=== PATIENT | male | born 1975 | race American Indian/Alaskan Native ===

== ENCOUNTER 2019-10-24 23:11 | Emergency (ER) | payer OTHER ==
[2019-10-24] MEDS ORDERED: Nitroglycerin 0.4 MG Tab.SL SL PRN (23:21)
[2019-10-24] MEDS ORDERED: Sodium Chloride 0.9% 2.5 ML Syringe FLUSH PRN (23:21)
[2019-10-24] MEDS ORDERED: Sodium Chloride 0.9% 10 ML Syringe FLUSH PRN (23:21)
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
[2019-10-24] MEDS ORDERED: HYDROmorphone 2 MG/ML Syringe IVPUSH ONE (23:33)
[2019-10-24] MEDS ORDERED: Ondansetron 4 MG/2 ML SDV IVPUSH ONE (23:33)
[2019-10-24 23:48] LABS: BLOOD UREA NITROGEN,BUN 11 mg/dL (7.0-18.0); CARBON DIOXIDE,CO2 22.3 mmol/L (21.0-32.0); CHLORIDE,CL 107 mmol/L (98-107); GLUCOSE RANDOM 126 mg/dL (74-106); POTASSIUM,K 3.7 mmol/L (3.5-5.1); SODIUM,NA 141 mmol/L (136-148)
[2019-10-25] MEDS ORDERED: HYDROmorphone 1 MG/ML Syringe IVPUSH ONE (01:10)
--- NOTE | 2019-10-25 01:19 | CT ---
INDICATION: Right flank pain TECHNIQUE: CT Abdomen and pelvis without i.v. contrast. Coronal and sagittal reformats were obtained. COMPARISON: None FINDINGS: Lower chest: Unremarkable. Pacer wires are partially visualized within the right atrium and ventricle. Liver: Unremarkable. Spleen: Unremarkable. Pancreas: Unremarkable. Gallbladder: Mild nonspecific gallbladder distention is present 4.3 cm. Kidney: There is a 1 mm stone present in the right ureterovesicular junction causing mild hydroureter and mild renal pelvicaliectasis. The left kidney is unremarkable in appearance. There is a punctate density in the left pelvis on image 128 which may represent a tiny nonobstructing distal left ureteral stone. Adrenal: Unremarkable. Bowel: Unremarkable. The appendix is normal in appearance and size. The appendix is best seen on coronal image 47. Vascular: Unremarkable. Lymph: Unremarkable. Peritoneum: Unremarkable. No pneumoperitoneum is seen. No significant ascites is noted. Pelvis: Unremarkable. Soft tissue: Unremarkable. Bone: Unremarkable for age. IMPRESSIONS: 1. There is a 1 mm stone present in the right ureterovesicular junction causing mild hydroureter and mild renal pelvicaliectasis. 2. There is a punctate density in the left pelvis on image 128 which may represent a tiny nonobstructing distal left ureteral stone. Dictated by Mario Roa MD @ 10/25/2019 1:16:57 AM Please note that all CT scans at this facility use dose modulation, iterative reconstruction, and/or weight-based dosing when appropriate to reduce radiation dose to as low as reasonably achievable. Dictated by: Mario Roa MD @ 10/25/2019 01:17:07 (Electronically Signed)
[2019-10-25 04:27] VITALS: BP 114/69; PULSE 56
== END 2019-10-25 02:35 | disposition home or self-care (01) ==
LOC: MW.ED 23:11
DX: N20.1 Calculus of ureter (principal); I50.9 Heart failure, unspecified; E11.9 Type 2 diabetes mellitus without complications; Z79.01 Long term (current) use of anticoagulants; Z79.899 Other long term (current) drug therapy; Z86.711 Personal history of pulmonary embolism
CPT/HCPCS: 36415; 74176; 80053; 81001; 84484; 85025; 85610; 93005; 96374; 96375; 96376; 99284; J1170; J2405

== ENCOUNTER 2020-11-28 18:11 | Emergency (ER) | payer MEDICAID, OTHER ==
[~2020-11-28 18:11] MED LIST: Lidocaine 1% 50 ML MDV INJECT ONE
[2020-11-28] MEDS ORDERED: Lidocaine 1% 10 ML MDV INJECT ONE (18:20)
[2020-11-28] MEDS ORDERED: Diphtheria,Pertussis(Acell),Tetanus Vaccine 0.5 ML Syringe IM ONE (18:35)
[2020-11-28] MEDS ORDERED: Piperacillin/Tazobactam 3.375 GM in Sodium Chloride 0.9% 50 ML IV ONE (18:37)
[2020-11-28] MEDS ORDERED: Phytonadione 10 MG in Sodium Chloride 0.9% 50 ML IV ONE (18:38)
[2020-11-28] MEDS ORDERED: Sodium Chloride 0.9% 1,000 ML IV ONE ×2 (18:43→18:46)
[2020-11-28] MEDS ORDERED: Tranexamic Acid 1,000 MG in Sodium Chloride 0.9% 100 ML IV ONE (18:44)
[2020-11-28 19:10] LABS: BLOOD UREA NITROGEN,BUN 8 mg/dL (7.0-18.0); CARBON DIOXIDE,CO2 26.1 mmol/L (21.0-32.0); CHLORIDE,CL 103 mmol/L (98-107); GLUCOSE RANDOM 243 mg/dL (74-106); POTASSIUM,K 3.7 mmol/L (3.5-5.1); SODIUM,NA 140 mmol/L (136-148)
[2020-11-28] MEDS ORDERED: Rocuronium 50 MG/5 ML Vial IVPUSH ONE (19:18)
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
[2020-11-28] MEDS ORDERED: fentaNYL 50 MCG/ML SDV IVPUSH ONE (19:19)
[2020-11-28] MEDS ORDERED: Propofol 200 MG/20 ML SDV IVPUSH ONE (19:22)
[2020-11-28] MEDS ORDERED: fentaNYL/Normal Saline 2,500 MCG in Premix Bag 1 BAG IV SCH (19:30)
--- NOTE | 2020-11-28 19:50 | PCM.PR.ETI ---
Endotracheal Intubation - Endotracheal Intubation Time of Intubation: 19:05 ET Intubation Indication: Airway Protection Preparation: Suction, Balloon Tested, BVM Set Up Pre-Oxygenation: Assisted with BVM, 100% FiO2 Anesthesia Meds: Propofol (150 mg), Rocuronium (50 mg) Placement: Orotracheal, Cuffed, Uncomplicated Placement Cords Visualized: Yes, Grade 1 ETT Size In mm: 7.5 Number of Attempts: 1 Confirmed By: CO2 Indicator, Bilateral Breath Sounds, Chest Xray Tube Secured By: By RT (secured at 22 cm at teeth)
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
[2020-11-28 20:28] VITALS: BP 115/82; PULSE 78
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
== END 2020-11-28 19:36 ==
LOC: MW.ED 18:11
DX: S21.132A Puncture wound without foreign body of left front wall of thorax without penetration into thoracic cavity, initial encounter (principal); J93.9 Pneumothorax, unspecified; Z23 Encounter for immunization
CPT/HCPCS: 31500; 32551; 36415; 36430; 51702; 71045; 74018; 80053; 81001; 85025; 85610; 85730; 86850; 86900; 86901; 86920; 86921; 86922; 90471; 90715; 96365; 96375; 96376; 99285; J2001; J2543; J2704; J3010; J3430; J7030; P9016; P9017

== ENCOUNTER 2021-02-17 14:33 | Emergency (ER) | payer OTHER ==
[2021-02-17 18:47] LABS: BLOOD UREA NITROGEN,BUN 6 mg/dL (7.0-18.0); CARBON DIOXIDE,CO2 24.4 mmol/L (21.0-32.0); CHLORIDE,CL 102 mmol/L (98-107); GLUCOSE RANDOM 174 mg/dL (74-106); POTASSIUM,K 3.5 mmol/L (3.5-5.1); SODIUM,NA 138 mmol/L (136-148)
[2021-02-17 19:09] VITALS: BP 121/84; PULSE 96
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
== END 2021-02-17 19:16 | disposition home or self-care (01) ==
LOC: MW.ED 14:33
DX: R31.9 Hematuria, unspecified (principal); I50.9 Heart failure, unspecified; E11.9 Type 2 diabetes mellitus without complications; Z86.711 Personal history of pulmonary embolism; Z79.01 Long term (current) use of anticoagulants; Z79.899 Other long term (current) drug therapy
CPT/HCPCS: 36415; 80048; 81001; 99284-25

== ENCOUNTER 2021-11-11 14:58 | Emergency (ER) | payer MEDICAID, OTHER ==
[2021-11-11 15:13] VITALS: BP 147/95; PULSE 86
== END 2021-11-11 15:31 | disposition home or self-care (01) ==
LOC: MW.ED 14:58
DX: Z02.89 Encounter for other administrative examinations (principal); E11.9 Type 2 diabetes mellitus without complications; I50.9 Heart failure, unspecified; Z95.0 Presence of cardiac pacemaker; Z79.01 Long term (current) use of anticoagulants; Z79.899 Other long term (current) drug therapy
CPT/HCPCS: 99283